=== PATIENT | female | born 1995 | race Caucasian/White ===

== ENCOUNTER 2024-07-28 09:40 | Inpatient (IN) | payer OTHER ==
[2024-07-28] MEDS ORDERED: Carboprost 250 MCG/ML AMP IM PRN (09:52)
[2024-07-28] MEDS ORDERED: Promethazine HCl 25 MG/ML VIAL IM PRN ×2 (09:52→11:38)
[2024-07-28] MEDS ORDERED: hydrALAZINE 20 MG/ML VIAL SLOW IVP PRN ×2 (09:52→14:06)
[2024-07-28] MEDS ORDERED: Misoprostol 200 MCG TAB PR PRN (09:52)
[2024-07-28] MEDS ORDERED: Methylergonovine 0.2 MG/ML VIAL IM PRN (09:52)
[2024-07-28] MEDS ORDERED: Ondansetron PF 4 MG/2 ML Vial IVP PRN ×3 (09:52→11:38)
[2024-07-28] MEDS ORDERED: Acetaminophen 500 MG TAB PO PRN (09:52)
[2024-07-28] MEDS ORDERED: Bicitra 30 ML UDCUP PO PRN (09:52)
[2024-07-28] MEDS ORDERED: Tranexamic Acid 1,000 MG/10 ML VIAL IVP PRN (09:52)
[2024-07-28] MEDS ORDERED: Diphenoxylate HCl/Atropine Tablet PO PRN (09:52)
[2024-07-28] MEDS ORDERED: fentaNYL 50 mcg/mL 1 mL Vial SLOW IVP PRN (09:52)
[2024-07-28] MEDS ORDERED: Oxytocin 30 units/NS 500 ML 500 ML IV SCH (10:00)
[2024-07-28 10:05] VITALS: BMI 23.8
[2024-07-28] MEDS: Lactated Ringer's 1,000 ML IV SCH (11:15)
[2024-07-28 11:36] LABS: Hematocrit 34.4 % (34.9-44.5); Hemoglobin 11.7 g/dL (12.0-15.5); Mean Corpuscular Hemoglobin 31.9 pg (27.0-33.0); Mean Corpuscular Volume 93.7 fL (81.6-98.3); Mean Platelet Volume 9.9 fL (7.4-10.4); Platelet Count 149 10x3/uL (150-450); RBC Distribution Width 12.5 % (11.5-14.5); Red Blood Cell (RBC) Count 3.67 10x6/uL (3.90-5.03); White Blood Cell (WBC) Count 14.3 10x3/uL (3.5-10.5)
[2024-07-28] MEDS ORDERED: Naloxone HCl 0.4 mg/ml Vial IVP PRN ×2 (11:38)
[2024-07-28] MEDS ORDERED: Moisturizing Cream (Eucerin) 113 GM JAR TOP PRN (11:38)
[2024-07-28] MEDS ORDERED: Naloxone HCl 0.4 mg/ml Vial IV PRN (11:38)
[2024-07-28] MEDS ORDERED: Meperidine HCl/PF 25 MG (1 mL) VIAL SLOW IVP PRN (11:38)
[2024-07-28] MEDS ORDERED: diphenhydrAMINE 50 MG/ML VIAL IVP PRN (11:38)
[2024-07-28] MEDS ORDERED: HYDROmorphone 0.5 MG/0.5 ML SYRINGE SLOW IVP PRN (11:38)
[2024-07-28] MEDS ORDERED: Ketorolac Tromethamine 30 MG (1 mL) VIAL IVP SCH (11:45)
[2024-07-28] MEDS ORDERED: Communication Order-Pharmacy FS SCH (11:45)
[2024-07-28] MEDS: CEFAZOLIN 2 GM in Sodium Chloride 0.9% 100 ML IVPB SCH (11:55)
[2024-07-28] MEDS: Famotidine/PF 20 mg/2ml Vial SLOW IVP PRN (11:56)
[2024-07-28 12:05] LABS: HBsAg Index 0.21 S/CO (0-0.99); Hep B Surf Ag - L&D Non-Reactive S/CO (NonReactive)
[2024-07-28 12:06] LABS: Syphilis Antibody Nonreactive (Nonreactive); Syphilis Antibody Index 0.06 S/CO (<1.00 Non-Reactive)
[2024-07-28 13:47] LABS: Analyzer IN Cardio CS NICU; RapidComm Collect By OR NURSE
[2024-07-28 13:48] LABS: Analyzer IN Cardio CS NICU; RapidComm Collect By OR NURSE; pH (Cord, venous) 7.356 (7.250-7.350)
[2024-07-28 14:36] LABS: Amphetamine Not Detected (NotDetected); Barbiturates Screen Not Detected (NotDetected); Benzodiazepine Screen Not Detected (NotDetected); Cocaine Metabolite Screen Not Detected (NotDetected); Methadone Not Detected (NotDetected); Methamphetamine Not Detected (NotDetected); Opiate Screen Not Detected (NotDetected); Oxycodone Screen Not Detected (NotDetected); Phencyclidine (PCP) Not Detected (NotDetected); THC/Cannabinoid Screen Not Detected (NotDetected); Tricyclic Screen Not Detected (NotDetected)
[2024-07-28] MEDS: fentaNYL 50 mcg/mL 1 mL Vial ONE (14:58)
[2024-07-28] MEDS: Morphine PF 10 MG/10 ML VIAL ONE (14:58)
[2024-07-28] MEDS: PHENYLEPHRINE-NS 100 MCG/ML 10 ML SYRINGE ONE (14:58)
[2024-07-28] MEDS: Ketorolac Tromethamine 30 MG (1 mL) VIAL IVP PRN (15:25)
[2024-07-28] MEDS: fentaNYL 50 mcg/mL 1 mL Vial SLOW IVP PRN (15:25)
[2024-07-28] MEDS: Acetaminophen 325 MG TAB PO SCH (22:22)
[2024-07-28] MEDS ORDERED: HYDROcodone/Acetaminophen 5/325 mg Tablet PO PRN (23:45)
[2024-07-29 06:04] LABS: Hematocrit 28.9 % (34.9-44.5); Hemoglobin 10.1 g/dL (12.0-15.5); Mean Corpuscular HGB CONC 34.9 g/dL (32.0-36.0); Mean Corpuscular Hemoglobin 32.9 pg (27.0-33.0); Mean Corpuscular Volume 94.1 fL (81.6-98.3); RBC Distribution Width 12.4 % (11.5-14.5); Red Blood Cell (RBC) Count 3.07 10x6/uL (3.90-5.03); White Blood Cell (WBC) Count 9.2 10x3/uL (3.5-10.5)
[2024-07-29 06:11] LABS: Mean Platelet Volume 10.6 fL (7.4-10.4); Platelet Count 145 10x3/uL (150-450)
[2024-07-29] MEDS: Boostrix 0.5 ML (Tdap) VIAL (>/=7 yrs of age) IM ONE (07:22)
[2024-07-29] MEDS: Ferrous Sulfate 325 MG TAB PO SCH (07:23)
[2024-07-29] MEDS: Simethicone Chewable 80 MG TAB PO PRN (08:51)
[2024-07-29] MEDS: Prenatal Vitamin 1 TAB PO SCH (08:51)
[2024-07-29] MEDS: HYDROcodone/Acetaminophen 10/325 mg Tablet PO PRN (13:31)
[2024-07-29] MEDS: Measles/Mumps/Rubella 10 MCG/0.5 ML VIAL SC ONE (14:49)
[2024-07-29] MEDS: Ibuprofen 800 MG TAB PO SCH (14:51)
[2024-07-30] MEDS: Docusate 100 MG CAP PO PRN (08:49)
[2024-07-30] MEDS: Polyethylene Glycol 3350 17 GM Packet PO SCH (09:58)
[2024-07-30 15:43] VITALS: BP 110/64; TEMP 98.2
== END 2024-07-30 16:30 | disposition home or self-care (01) | DRG 788 ==
LOC: CSHLD 09:40 → CSHPED 16:50
PROVIDERS: ADMIT Obstetrics & Gynecology; ATTEND Obstetrics & Gynecology
PROC: 10D00Z1 Extraction of Products of Conception, Low, Open Approach (ICD-10-PCS; principal; 2024-07-28)
DX: O34.211 Maternal care for low transverse scar from previous cesarean delivery (principal); O26.893 Other specified pregnancy related conditions, third trimester; Z67.11 Type A blood, Rh negative; Z3A.37 37 weeks gestation of pregnancy; Z37.0 Single live birth; O36.5930 Maternal care for other known or suspected poor fetal growth, third trimester, not applicable or unspecified
CPT/HCPCS: 36415; 51702; 74018; 80306; 82805; 85027; 86780; 86850; 86870; 86900; 86901; 86922; 87340; 88307; 90707; J1885; J2274; J3010; J3490; J7120